=== PATIENT | male | born 1995 ===

== ENCOUNTER 2018-04-15 11:15 | Emergency (ER) | payer BC ==
[2018-04-15 11:57] VITALS: BP 131/89
--- NOTE | 2018-04-15 12:31 | UC ---
Knee Pain HPI - HPI Summary HPI Summary: Pt c/o sudden onset right knee pain and right hip bruise and pain after falling from standing while skiing yestgerday. Pt was getting off chairlift and feel with twisting motion and landing on right side side leg. - History of Current Complaint Chief Complaint: UCLowerExtremity Stated Complaint: RIGHT KNEE INJURY Time Seen by Provider: 04/15/18 11:59 Hx Obtained From: Patient Onset/Duration: Sudden Onset, Lasting Days - 1 Severity Initially: Mild Severity Currently: Moderate Pain Intensity: 8 Character: Sharp, Dull, Aching Aggravating Factor(s): Movement, Weight Bearing, Stairs Alleviating Factor(s): Rest, Position Associated Signs And Symptoms: Positive: Bruising - right hip Able to Bear Weight: Yes - Risk Factors Septic Arthritis Risk Factor: Negative Gout Risk Factor: Male - Allergies/Home Medications Allergies/Adverse Reactions: Allergies Allergy/AdvReac Type Severity Reaction Status Date / Time No Known Allergies Allergy Verified 04/15/18 11:51 Home Medications: Home Medications Ibuprofen TAB* [Motrin TAB* 600 MG] 600 mg PO DAILY PRN 04/15/18 [History Confirmed 04/15/18] PMH/Surg Hx/FS Hx/Imm Hx Previously Healthy: Yes - Surgical History Surgical History: None - Family History Known Family History: Positive: Cardiac Disease - Social History Occupation: Employed Full-time Lives: With Family Alcohol Use: Weekly Alcohol Amount: 2 Substance Use Type: None Smoking Status (MU): Former Smoker Have You Smoked in the Last Year: No Review of Systems All Other Systems Reviewed And Are Negative: Yes Constitutional: Positive: Negative Skin: Positive: Bruising - right lateral upper thigh Eyes: Positive: Negative ENT: Positive: Negative Respiratory: Positive: Negative Cardiovascular: Positive: Negative Gastrointestinal: Positive: Negative Genitourinary: Positive: Negative Motor: Positive: Other - pain with ROM and certain wegith bearing activity. Neurovascular: Positive: Negative Musculoskeletal: Positive: Arthralgia, Decreased ROM, Myalgia Neurological: Positive: Negative Psychological: Positive: Negative Is Patient Immunocompromised?: No Physical Exam Triage Information Reviewed: Yes Appearance: Well-Appearing Vital Signs: Initial Vital Signs Temp 98 F 04/15/18 11:52 Pulse 87 04/15/18 11:52 Resp 16 04/15/18 11:52 BP 131/89 04/15/18 11:52 Pulse Ox 99 04/15/18 11:52 Vital Signs Reviewed: Yes Eye Exam: Normal ENT Exam: Normal Dental Exam: Normal Neck exam: Normal Respiratory: Positive: No respiratory distress Musculoskeletal: Positive: ROM Limited @ - pain with rom right knee, Other: - 3 cm in diameter bruise circular in shape right lateral upper thigh, ~ at greater trochanter negative drawer test, negative valgus, varus, c/o pain at right knee joint space, medial aspect. Neurological Exam: Normal Psychological Exam: Normal Skin Exam: Other - bruise right upper lateral thigh Knee Pain Course/Dx - Differential Dx/Diagnosis Differential Diagnosis/HQI/PQRI: Contusion, Fracture (Closed), Internal Derangement Of Knee, Sprain, Strain Provider Diagnosis: Right knee sprain, Acute right hip pain, Contusion of right hip Discharge - Sign-Out/Discharge Documenting (check all that apply): Patient Departure All imaging exams completed and their final reports reviewed: No Studies - Discharge Plan Condition: Stable Disposition: HOME Patient Education Materials: Knee Sprain (ED), Knee Pain (ED), R.I.C.E. Treatment (ED), Hip Pain (ED) Referrals: [facility] [Outside] - If Needed Fransico Jiménez MD [Medical Doctor] - As Soon As Possible No Primary Care Phys,NOPCP [Primary Care Provider] - - Billing Disposition and Condition Condition: STABLE Disposition: Home
== END 2018-04-15 12:39 | disposition home or self-care (01) ==
LOC: UCCORT 11:15
DX: S83.91XA Sprain of unspecified site of right knee, initial encounter (principal); W07.XXXA Fall from chair, initial encounter; Y93.24 Activity, cross country skiing; Y92.89 Other specified places as the place of occurrence of the external cause; Z87.891 Personal history of nicotine dependence
CPT/HCPCS: 99201; G0463